=== PATIENT | female | born 1985 | race Caucasian/White ===

== ENCOUNTER 2020-11-19 19:50 | Emergency (ER) | payer SELFPAY ==
[2020-11-19] MEDS ORDERED: Sodium Chloride 0.9% 2.5 ML Syringe FLUSH PRN (20:01)
[2020-11-19] MEDS ORDERED: Sodium Chloride 0.9% 10 ML Syringe FLUSH PRN (20:01)
[2020-11-19] MEDS ORDERED: Adenosine 6 MG/2 ML SDV ONE (20:16)
[2020-11-19] MEDS ORDERED: Sodium Chloride 0.9% 1,000 ML IV ONE ×2 (20:27→21:40)
[2020-11-19 20:28] LABS: CARBON DIOXIDE,CO2 25.4 mmol/L (21.0-32.0); POTASSIUM,K 3.5 mmol/L (3.5-5.1)
[2020-11-19] MEDS ORDERED: Adenosine 6 MG/2 ML SDV IVPUSH ONE (20:29)
[2020-11-19] MEDS ORDERED: Potassium Chloride 10% 20 MEQ/15 ML Soln 30 ML UD Cup PO ONE ×2 (21:36→21:40)
--- NOTE | 2020-11-19 22:51 | EDM.PDOC ---
ED HPI GENERAL MEDICAL PROBLEM - General Chief Complaint: Cardiovascular Problem Stated Complaint: HEART PALP Time Seen by Provider: 11/19/20 19:54 - History of Present Illness INITIAL COMMENTS - FREE TEXT/NARRATIVE: CHIEF COMPLAINT(S): Palpitations HISTORY OF PRESENT ILLNESS: This is a 35-year-old woman without any significant past medical history who comes to the emergency department with a chief complaint of a palpitations. The patient states that for the last 3 days she has been experiencing intermittent palpitations where she feels like her heart is going to come out of her chest. She denies any chest pain but states that she does feel mildly short of breath. She states that she has had a history of these palpitations in the past but they have not been this frequent. She denies any headache, nausea, vomiting, diaphoresis, abdominal pain. She states that she has never had this before. She denies any history of recent travel, recent surgery, prior history of DVT or PE. She denies any history of hyperthyroidism or hypothyroidism. REVIEW OF SYSTEMS: Constitutional: Denies fever, chills. Eyes: Denies eye pain Ears, Nose, Mouth, & Throat: Denies earache Cardiovascular: Positive for palpitations. Denies chest pain Respiratory: Positive for intermittent shortness of breath. Gastrointestinal: Denies Nausea, vomiting, diarrhea, hematochezia. Genitourinary: Denies hematuria Skin:Denies a rash MSK: Denies joint pain Neurological: Denies blurred vision Psychiatric: Denies depression PAST MEDICAL HISTORY: As per history of present illness and as reviewed below otherwise noncontributory. SURGICAL HISTORY: As per history of present illness and as reviewed below otherwise noncontributory. LMP: October 25, 2020 SOCIAL HISTORY: As per history of present illness and as reviewed below otherwise noncontributory. FAMILY HISTORY: As per history of present illness and as reviewed below otherwise noncontributory. EXAMINATION OF ORGAN SYSTEMS/BODY AREAS: Constitutional: Blood pressure is 148/61, heart rate 100, respiratory 16 with an oxygen saturation 100% on room air. Temperature 36.1 General: Anxious appearing woman who is in no acute distress Psychiatric: Anxious appearing woman but cooperative. Eyes: No scleral icterus or conjunctival erythema ENMT: Moist mucous membranes. No pharyngeal erythema Cardiovascular: Regular, rate, and rhythm. No gallops, murmurs, or rubs. Bilateral upper extremity pulses symmetric and intact. No peripheral edema. No JVD. Respiratory: Lungs clear to auscultation bilaterally. No wheezes, rales, or rhonchi. Gastrointestinal: Soft, non-tender, non-distended. Normoactive bowel sounds Genitourinary: No suprapubic tenderness Musculoskeletal: Normal range of motion. Skin: No lesions or abrasions. Neurological: Alert, GCS 15 MEDICAL DECISION MAKING AND COURSE IN THE ED WITH INTERPRETATION/REVIEW OF DIAGNOSTIC STUDIES: This is a 35-year-old woman without any significant past medical history who comes to the emergency department with palpitations and intermittent shortness of breath. At this time we did obtain an EKG which did not reveal any acute signs of ischemia or arrhythmia. Will obtain labs including CBC, BMP, TSH, T4, troponin. We will provide the patient with 1 L of normal saline. On reevaluation, the patient's heart rate had gone into the 200s. We placed the patient on color television console monitor and it did appear to be supraventricular tachycardia. We obtained an EKG which did reveal supraventricular tachycardia at 217. We did place 18-gauge IV in the right arm place the pads on the patient and prepared for adenosine cardioversion. I did discuss this with the patient. During my discussion with the patient the patient's heart rate converted on its own to a heart rate of 120. It was normal sinus rhythm on the color television console monitor. Time: 1948 Twelve-lead EKG interpreted by myself. Normal sinus rhythm at a rate of 99beats per minute. Right axis. VA interval is 136 ms. QRS duration is [address] segments are mildly depressed in leads II, III, aVF and V4 through V6. No T wave inversions Q wave is present and lead V2. Right ventricular hypertrophy is noted. No prior EKGs in our system. Interpretation: Normal sinus rhythm with [facility] Laboratory: CBC is unremarkable. CMP reveals mildly elevated creatinine of 1.1, hyperglycemia at 185 otherwise unremarkable. Troponin x2 is negative. TSH was 7.89, T4 was 1.14. Urinalysis was a clean catch and was negative for leukocyte esterase, negative for nitrites, and negative for blood. Interpretation: Negative. Time: 2008 Twelve-lead EKG interpreted by myself. Supraventricular tachycardia at a rate of 217 beats per minute. Right axis. VA interval is unobtainable. QRS duration is [address] segments are depressed in leads II, 3, aVF, V3 through V6. No T wave inversions is a Q wave in lead V2. Significant change from EKG obtained today. Interpretation: Supraventricular tachycardia Time: 2021 Twelve-lead EKG interpreted by myself. Sinus tachycardia at a rate of 109 beats per minute. Right axis. VA interval is 166 ms. QRS duration is [address] segments are mildly depressed in leads II, III, aVF and V4 through V6. No T wave inversions Q wave in lead V2. Right ventricular hypertrophy. No changes demonstrated from prior EKG dated today. Interpretation: Sinus rhythm with right ventricular hypertrophy During her emergency department visit the patient did have recurrent episodes of paroxysmal SVT which did terminate on their own. I had a discussion with the patient that at this time given the recurrent nature of these arrhythmias I would like to speak with a carton liner. Given the recurrent nature I did provide the patient with verapamil 80 mg by mouth. I contacted [facility] in [place] and they do not have an EP carton liner available. Therefore I contacted [facility] in [place] and spoke with Dr. Carver who recommended 120 mg of diltiazem extended release per day and follow-up with EP cardiology in [place]. After we provided the patient with verapamil the patient no longer had any further episodes of SVT. I did discuss with her at this time she be stable for discharge. She is to follow-up with EP cardiology for further evaluation and monitoring hopefully within the next 2 to 3 days. She was amenable to discharge at this time and had no further questions. She was given strict return precautions DISPOSITION: The patient was discharged home in stable condition. The patient will follow up with EP cardiology within 2 to 3 days CONDITION: Fair PROCEDURES: None FINAL IMPRESSION(S)/DIAGNOSES: 1. Acute paroxysmal supraventricular tachycardia Joby Sanchez M.D. 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: , Other (See Below) Other SENIOR STORAGE ADMINISTRATOR History: D/C - Past Surgical History HEENT Surgical History: Reports: Tonsillectomy Female Surgical History: Reports: Tubal Ligation Social & Family History - Family History Family Medical History: No Pertinent Family History - Caffeine Use Caffeine Use: Reports: None - Recreational Drug Use Recreational Drug Use: No ED ROS GENERAL - Review of Systems Review Of Systems: See Below ED EXAM, GENERAL - Physical Exam Exam: See Below Course - Vital Signs Last Recorded V/S: Last Vital Signs Temp 36.2 C 11/19/20 22:40 Pulse 91 11/19/20 22:40 Resp 18 11/19/20 22:40 BP 107/63 11/19/20 22:40 Pulse Ox 98 11/19/20 22:40 - Orders/Labs/Meds Labs: Laboratory Tests 11/19/20 11/19/20 11/19/20 Range/Units 18:55 18:58 18:58 WBC 8.56 (4.0-11.0) K/uL RBC 5.20 (4.30-5.90) M/uL Hgb 16.3 H (12.0-16.0) g/dL Hct 47.2 H (36.0-46.0) % MCV 90.8 (80.0-98.0) fL MCH 31.3 (27.0-32.0) pg MCHC 34.5 (31.0-37.0) g/dL RDW Std Deviation 42.7 (28.0-62.0) fl RDW Coeff of Chitra 13 (11.0-15.0) % Plt Count 196 (150-400) K/uL MPV 10.80 (7.40-12.00) fL Neut % (Auto) 55.5 (48.0-80.0) % Lymph % (Auto) 34.7 (16.0-40.0) % [place] % (Auto) 8.4 (0.0-15.0) % Eos % (Auto) 0.9 (0.0-7.0) % Baso % (Auto) 0.5 (0.0-1.5) % Neut # (Auto) 4.8 (1.4-5.7) K/uL Lymph # (Auto) 3.0 H (0.6-2.4) K/uL [place] # (Auto) 0.7 (0.0-0.8) K/uL Eos # (Auto) 0.1 (0.0-0.7) K/uL Baso # (Auto) 0.0 (0.0-0.1) K/uL Nucleated RBC % 0.0 /100WBC Nucleated RBCs # 0 K/uL Sodium 141 (136-145) mmol/L Potassium 3.5 (3.5-5.1) mmol/L Chloride 104 (98-107) mmol/L Carbon Dioxide 25.4 (21.0-32.0) mmol/L BUN 16 (7.0-18.0) mg/dL Creatinine 1.1 H (0.6-1.0) mg/dL Est Cr Clr Drug Dosing 62.23 mL/min Estimated GFR (MDRD) 56.9 ml/min Glucose 185 H (74-106) mg/dL Calcium 9.4 (8.5-10.1) mg/dL Magnesium 2.2 (1.8-2.4) mg/dL Total Bilirubin 0.6 (0.2-1.0) mg/dL AST 15 (15-37) IU/L ALT 28 (14-63) IU/L Alkaline Phosphatase 52 (46-116) U/L Troponin I < 0.050 (0.000-0.056) ng/mL Total Protein 7.8 (6.4-8.2) g/dL Albumin 4.5 (3.4-5.0) g/dL Globulin 3.3 (2.6-4.0) g/dL Albumin/Globulin Ratio 1.4 (0.9-1.6) Free T4 1.14 (0.76-1.46) ng/dL TSH 3rd Generation 7.89 H (0.36-3.74) uIU/mL Urine Color Urine Appearance Urine pH (5.0-8.0) Ur Specific [place] (1.001-1.035) Urine Protein (NEGATIVE) mg/dL Urine Glucose (UA) (NEGATIVE) mg/dL Urine Ketones (NEGATIVE) mg/dL Urine Occult Blood (NEGATIVE) Urine Nitrite (NEGATIVE) Urine Bilirubin (NEGATIVE) Urine Urobilinogen (<2.0) EU/dL Ur Leukocyte Esterase (NEGATIVE) Urine HCG, Qual (NEGATIVE) 11/19/20 11/19/20 11/19/20 Range/Units 21:15 21:15 21:55 WBC (4.0-11.0) K/uL RBC (4.30-5.90) M/uL Hgb (12.0-16.0) g/dL Hct (36.0-46.0) % MCV (80.0-98.0) fL MCH (27.0-32.0) pg MCHC (31.0-37.0) g/dL RDW Std Deviation (28.0-62.0) fl RDW Coeff of Chitra (11.0-15.0) % Plt Count (150-400) K/uL MPV (7.40-12.00) fL Neut % (Auto) (48.0-80.0) % Lymph % (Auto) (16.0-40.0) % [place] % (Auto) (0.0-15.0) % Eos % (Auto) (0.0-7.0) % Baso % (Auto) (0.0-1.5) % Neut # (Auto) (1.4-5.7) K/uL Lymph # (Auto) (0.6-2.4) K/uL [place] # (Auto) (0.0-0.8) K/uL Eos # (Auto) (0.0-0.7) K/uL Baso # (Auto) (0.0-0.1) K/uL Nucleated RBC % /100WBC Nucleated RBCs # K/uL Sodium (136-145) mmol/L Potassium (3.5-5.1) mmol/L Chloride (98-107) mmol/L Carbon Dioxide (21.0-32.0) mmol/L BUN (7.0-18.0) mg/dL Creatinine (0.6-1.0) mg/dL Est Cr Clr Drug Dosing mL/min Estimated GFR (MDRD) ml/min Glucose (74-106) mg/dL Calcium (8.5-10.1) mg/dL Magnesium (1.8-2.4) mg/dL Total Bilirubin (0.2-1.0) mg/dL AST (15-37) IU/L ALT (14-63) IU/L Alkaline Phosphatase (46-116) U/L Troponin I < 0.050 (0.000-0.056) ng/mL Total Protein (6.4-8.2) g/dL Albumin (3.4-5.0) g/dL Globulin (2.6-4.0) g/dL Albumin/Globulin Ratio (0.9-1.6) Free T4 (0.76-1.46) ng/dL TSH 3rd Generation (0.36-3.74) uIU/mL Urine Color YELLOW Urine Appearance CLEAR Urine pH 6.0 (5.0-8.0) Ur Specific [place] <= 1.005 (1.001-1.035) Urine Protein NEGATIVE (NEGATIVE) mg/dL Urine Glucose (UA) NEGATIVE (NEGATIVE) mg/dL Urine Ketones NEGATIVE (NEGATIVE) mg/dL Urine Occult Blood NEGATIVE (NEGATIVE) Urine Nitrite NEGATIVE (NEGATIVE) Urine Bilirubin NEGATIVE (NEGATIVE) Urine Urobilinogen 0.2 (<2.0) EU/dL Ur Leukocyte Esterase NEGATIVE (NEGATIVE) Urine HCG, Qual NEGATIVE (NEGATIVE) Meds: Medications Discontinued Medications Generic Name Dose Route Start Last Admin Trade Name Freq PRN Reason Stop Dose Admin Adenosine Confirm 11/19/20 20:16 11/19/20 22:38 Adenocard Administered 11/19/20 20:17 Not Given Dose 12 mg .ROUTE .STK-MED ONE Adenosine 6 mg 11/19/20 20:29 11/19/20 22:03 Adenocard IVPUSH 11/19/20 20:30 Not Given NOW ONE Sodium Chloride 1,000 mls @ 999 mls/hr 11/19/20 20:27 11/19/20 20:28 Normal Saline IV 11/19/20 21:27 999 mls/hr .Bolus ONE Administration Sodium Chloride 1,000 mls @ 999 mls/hr 11/19/20 21:40 11/19/20 21:44 Normal Saline IV 11/19/20 22:40 999 mls/hr .Bolus ONE Administration Potassium Chloride 40 meq 11/19/20 21:36 11/19/20 22:00 Potassium Chloride PO 11/19/20 21:37 40 meq ONETIME ONE Administration Potassium Chloride 20 meq 11/19/20 21:40 11/19/20 22:00 Potassium Chloride PO 11/19/20 21:41 20 meq ONETIME ONE Administration Sodium Chloride 10 ml 11/19/20 20:01 Saline Flush FLUSH ASDIRECTED PRN Keep Vein Open Sodium Chloride 2.5 ml 11/19/20 20:01 Saline Flush FLUSH ASDIRECTED PRN Keep Vein Open Verapamil HCl 80 mg 11/19/20 20:36 11/19/20 20:50 Calan PO 11/19/20 20:37 80 mg ONETIME ONE Administration Departure - Departure Time of Disposition: 22:51 Disposition: Home, Self-Care 01 Condition: Fair Clinical Impression: Paroxysmal supraventricular tachycardia Prescriptions: dilTIAZem HCL [Diltiazem 24Hr ER] 120 mg PO DAILY #30 cap.sa.24h Instructions: Supraventricular Tachycardia, Adult, [id number] Referrals: PCP,None [Primary Care Provider] - Forms: ED Department Discharge Additional Instructions: You were evaluated today on an emergent basis. At this time we did diagnose you with supraventricular tachycardia. In discussion with cardiology at [facility] they would like you to take diltiazem 120 mg a day. They would like you to contact them for a follow-up appointment number is provided below. If you have any worsening of the symptoms you start to feel your heart racing, feel chest pain or shortness of breath please return to the emergency department. [facility] Cardiology [phone] If you do not have a primary care physician I do recommend you make an appointment with a primary care physician at the numbers below. [facility] - Primary Care [address] [place] [address] [id number] The patient is informed of any results of their evaluation and diagnostic workup and all questions are answered. They are given discharge instructions and return precautions. The patient is stable for discharge. The patient states they understand and agree with the plan and that they will return if their symptoms get worse or if they have any new concerns. The following information is given to patients seen in the emergency department who are being discharged to home. This information is to outline your options for follow-up care. We provide all patients seen in our emergency department with a follow-up referral. The need for follow-up, as well as the timing and circumstances, are variable depending upon the specifics of your emergency department visit. If you don't have a primary care physician on staff, we will provide you with a referral. We always advise you to contact your personal physician following an emergency department visit to inform them of the circumstance of the visit and for follow-up with them and/or the need for any referrals to a consulting specialist. The emergency department will also refer you to a specialist when appropriate. This referral assures that you have the opportunity for follow-up care with a specialist. All of these measure are taken in an effort to provide you with optimal care, which includes your follow-up. Under all circumstances we always encourage you to contact your private physician who remains a resource for coordinating your care. When calling for follow-up care, please make the office aware that this follow-up is from your recent emergency room visit. If for any reason you are refused follow-up, please contact the [facility] Emergency Department at and asked to speak to the emergency department charge nurse. Sepsis Event Note (ED) - Evaluation Sepsis Screening Result: No Definite Risk
== END 2020-11-19 23:00 | disposition home or self-care (01) ==
LOC: MW.ED 19:50
DX: I47.1 Supraventricular tachycardia (principal); R74.8 Abnormal levels of other serum enzymes
CPT/HCPCS: 36415; 80053; 81003; 81025; 83735; 84439; 84443; 84484; 85025; 93005; 99285; A9270; J7030; 93010; 99284

== ENCOUNTER 2020-11-20 23:52 | Emergency (ER) | payer SELFPAY ==
[2020-11-21] MEDS ORDERED: LORazepam 2 MG/ML SDV IVPUSH ONE (00:14)
[2020-11-21 00:29] LABS: BLOOD UREA NITROGEN,BUN 14 mg/dL (7.0-18.0); CARBON DIOXIDE,CO2 24.6 mmol/L (21.0-32.0); CHLORIDE,CL 102 mmol/L (98-107); GLUCOSE RANDOM 113 mg/dL (74-106); SODIUM,NA 138 mmol/L (136-145)
[2020-11-21] MEDS ORDERED: Sodium Chloride 0.9% 1,000 ML IV SCH (01:00)
[2020-11-21] MEDS ORDERED: Diltiazem 120 MG Cap.CD PO ONE (01:40)
[2020-11-21] MEDS ORDERED: Diltiazem IR 60 MG Tab PO ONE (01:56)
[2020-11-21] MEDS ORDERED: Sodium Chloride 0.9% 100 ML ONE (03:08)
[2020-11-21] MEDS ORDERED: Diltiazem 100 MG in Sodium Chloride 0.9% 100 ML IV SCH (03:15)
--- NOTE | 2020-11-21 07:56 | EDM.PDOC ---
ED HPI GENERAL MEDICAL PROBLEM - General Chief Complaint: Cardiovascular Problem Stated Complaint: HEART ISSUES Time Seen by Provider: 11/20/20 23:53 - History of Present Illness INITIAL COMMENTS - FREE TEXT/NARRATIVE: Jinny Rinaldi CHIEF COMPLAINT(S): Palpitations HISTORY OF PRESENT ILLNESS: This is a 35-year-old woman with a past medical history of paroxysmal supraventricular tachycardia who comes to the emergency department with a chief complaint of palpitations. The patient states that since starting diltiazem today she has still been experiencing palpitations intermittently which may occur almost pass out. She states that she does not have any pain, diaphoresis or nausea but states that she feels like her heart is going to jump out of her chest. She denies any recent travel, recent surgery, prior history of DVT or PE. She states that she has an appointment tomorrow with her primary care physician to be referred to [facility] with Dr. Ramirez but she was too symptomatic and came to the emergency department. REVIEW OF SYSTEMS: Constitutional: Denies fever, chills. Eyes: Denies eye pain Ears, Nose, Mouth, & Throat: Denies earache Cardiovascular: Positive for palpitations and presyncope. Denies lower extremity edema Respiratory: Denies shortness of breath Gastrointestinal: Denies Nausea, vomiting, diarrhea, hematochezia. Genitourinary: Denies hematuria Skin:Denies a rash MSK: Denies joint pain Neurological: Denies blurred vision Psychiatric: Denies depression PAST MEDICAL HISTORY: As per history of present illness and as reviewed below otherwise noncontributory. SURGICAL HISTORY: As per history of present illness and as reviewed below otherwise noncontributory. SOCIAL HISTORY: As per history of present illness and as reviewed below otherwise noncontributory. FAMILY HISTORY: As per history of present illness and as reviewed below otherwise noncontributory. EXAMINATION OF ORGAN SYSTEMS/BODY AREAS: Constitutional: Heart rate was 142, respiratory rate 18 with an oxygen saturation 98% on room air. Blood pressure is 159/84 General: Anxious appearing young woman who in mild distress Psychiatric: Anxious appearing but cooperative. Eyes: No scleral icterus or conjunctival erythema ENMT: Moist mucous membranes. No pharyngeal erythema Cardiovascular: Tachycardic but regular. No gallops, murmurs, or rubs. Bilateral upper extremity pulses symmetric and intact. No peripheral edema. No JVD. Respiratory: Lungs clear to auscultation bilaterally. No wheezes, rales, or rhonchi. Gastrointestinal: Soft, non-tender, non-distended. Normoactive bowel sounds Genitourinary: No suprapubic tenderness Musculoskeletal: Normal range of motion. Skin: No lesions or abrasions. Neurological: Alert, GCS 15 MEDICAL DECISION MAKING AND COURSE IN THE ED WITH INTERPRETATION/REVIEW OF DIAGNOSTIC STUDIES: This is a 35-year-old man with a past medical history of paroxysmal supraventricular tachycardia who comes to the emergency department with continued palpitations and presyncopal episode. Initial EKG did not reveal any acute signs of ischemia and was sinus rhythm. At this time we did do a cardiac work-up yesterday. Will obtain repeat electrolytes and a D-dimer given the tachycardia. We will administer the patient 60 mg of p.o. diltiazem. Time: 2358 Twelve-lead EKG interpreted by myself. Normal sinus rhythm at a rate of 84beats per minute. Right axis. DE interval is 132 ms. QRS duration is [address] segments are slightly depressed and 2, 3, aVF and V4 through V6. No T wave inversions no Q waves present. Unknown if this is changed from yesterday as we are in a downtime I do not have access to records. Interpretation: Normal sinus rhythm with [facility] Laboratory: BMP is unremarkable. D-dimer is negative. The patient had continued episodes of tachycardia which were symptomatic for the patient is becoming short of breath and presyncopal. We did obtain a repeat EKG which did reveal atrial flutter with conversion into normal sinus rhythm with PACs. At this time given the patient is symptomatic I do not believe the patient is stable for discharge. Time: 010 Twelve-lead EKG interpreted by myself. Atrial flutter with conversion to normal sinus rhythm with PACs at a rate of 106 beats per minute. Right axis. DE interval is unobtainable. QRS duration is [address] segments are slightly depressed in leads aVF and V4 through V6. No T wave inversions no Q waves present. Interpretation: Atrial Flutter 2:1 Given that we do not have cardiology at our institution and [facility] does not have EP cardiology I did contact [facility] in [place] and spoke with Dr. Jordan and Dr Arias who accepted the transfer. After starting the diltiazem drip the patient's heart rate was persistently in the 115-120s. We will reevaluate prior to transfer. Laboratory: COVID is negative The radiological images were viewed by myself along with reading the report from the radiologist. Chest x-ray does not reveal any acute cardiopulmonary process. There was a right sided pulmonary nodule measuring 10 mm. EMS was contacted and at this time the patient cannot be transferred for approximately 4 hours. Given that the patient will be observed in our emergency department until transfer can be initiated we will obtain a CT thorax with and without contrast to evaluate. Will obtain an hCG prior to this process. I did discuss obtaining CT and she was amenable to this plan. We contacted [facility] and at this time they cannot hold the bed and would like us to call 30 minutes prior to transfer to discuss transfer again. The patient was updated. The radiological images were viewed by myself along with reading the report from the radiologist. CT thorax with contrast reveals no evidence of pulmonary nodule. There is an i ncidentally noted right thyroid nodule measuring up to 3.3 cm follow-up with thyroid ultrasound is recommended as outpatient. Patients heart rate on monitor after Cardizem drip was 80s-90s with no further episodes of Atrial Flutter or SVT. DISPOSITION: Patient was signed out to Dr. Castaneda pending contacting [facility] prior to transfer at 7 am CONDITION: Serious PROCEDURES: None FINAL IMPRESSION(S)/DIAGNOSES: 1. Acute paroxysmal supraventricular tachycardia 2. Acute paroxysmal atrial flutter with 2-1 conduction Joby Sanchez M.D. 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: , Other (See Below) Other STAFFING ACCOUNT MANAGER History: D/C - Past Surgical History HEENT Surgical History: Reports: Tonsillectomy Female Surgical History: Reports: Tubal Ligation Social & Family History - Family History Family Medical History: No Pertinent Family History - Tobacco Use Tobacco Use Status *Q: Never Tobacco User - Caffeine Use Caffeine Use: Reports: None - Recreational Drug Use Recreational Drug Use: No ED ROS GENERAL - Review of Systems Review Of Systems: See Below ED EXAM, GENERAL - Physical Exam Exam: See Below Course - Vital Signs Last Recorded V/S: Last Vital Signs Temp 36.6 C 11/20/20 23:59 Pulse 89 11/21/20 08:07 Resp 18 11/21/20 08:07 BP 116/61 11/21/20 08:07 Pulse Ox 96 11/21/20 08:07 - Orders/Labs/Meds Orders: Active Orders 24 hr Category Date Time Status Chest 1V Frontal [CR] Stat Exams 11/21/20 03:35 Taken Chest w Cont [CT] Stat Exams 11/21/20 03:50 Taken Labs: Laboratory Tests 11/21/20 11/21/20 11/21/20 Range/Units 00:05 00:05 00:05 D-Dimer, Quantitative < 0.19 (0.0-0.50) mg/L FEU Sodium 138 (136-145) mmol/L Potassium 4.0 (3.5-5.1) mmol/L Chloride 102 (98-107) mmol/L Carbon Dioxide 24.6 (21.0-32.0) mmol/L BUN 14 (7.0-18.0) mg/dL Creatinine 1.0 (0.6-1.0) mg/dL Est Cr Clr Drug Dosing 68.45 mL/min Estimated GFR (MDRD) > 60.0 ml/min Glucose 113 H (74-106) mg/dL Calcium 9.4 (8.5-10.1) mg/dL Magnesium 2.1 (1.8-2.4) mg/dL HCG, Qual NEGATIVE (NEG) SARS-CoV-2 RNA (KATELYN) (NEGATIVE) 11/21/20 Range/Units 03:00 D-Dimer, Quantitative (0.0-0.50) mg/L FEU Sodium (136-145) mmol/L Potassium (3.5-5.1) mmol/L Chloride (98-107) mmol/L Carbon Dioxide (21.0-32.0) mmol/L BUN (7.0-18.0) mg/dL Creatinine (0.6-1.0) mg/dL Est Cr Clr Drug Dosing mL/min Estimated GFR (MDRD) ml/min Glucose (74-106) mg/dL Calcium (8.5-10.1) mg/dL Magnesium (1.8-2.4) mg/dL HCG, Qual (NEG) SARS-CoV-2 RNA (KATELYN) NEGATIVE (NEGATIVE) Meds: Medications Discontinued Medications Generic Name Dose Route Start Last Admin Trade Name Freq PRN Reason Stop Dose Admin Diltiazem HCl 60 mg 11/21/20 01:40 11/21/20 02:05 Cardizem Cd PO 11/21/20 01:41 Not Given ONETIME ONE Diltiazem HCl 60 mg 11/21/20 01:56 11/21/20 02:05 Cardizem PO 11/21/20 01:57 60 mg ONETIME ONE Administration Sodium Chloride 1,000 mls @ 999 mls/hr 11/21/20 01:00 11/21/20 01:10 Normal Saline IV 999 mls/hr ASDIRECTED DENIS Administration Diltiazem HCl 100 mg/ Sodium 100 mls @ 5 mls/hr 11/21/20 03:15 Chloride IV NOW DENIS Protocol 5 MG/HR Sodium Chloride Confirm 11/21/20 03:08 11/21/20 08:50 Normal Saline Administered 11/21/20 03:09 Not Given Dose 100 mls @ as directed .ROUTE .STK-MED ONE Iopamidol 75 ml 11/21/20 10:02 11/21/20 10:04 Iopamidol 755 Mg/Ml 500 Ml Multipack Bottle IVPUSH 11/21/20 10:03 75 ml ONETIME STA Administration Lorazepam 1 mg 11/21/20 00:14 11/21/20 00:25 Ativan IVPUSH 11/21/20 00:15 1 mg ONETIME ONE Administration Departure - Departure Time of Disposition: 08:00 Disposition: DC/Tfer to Acute Hospital 02 Reason for Transfer *Q: Other (EP cardiology) Condition: Serious Clinical Impression: Paroxysmal supraventricular tachycardia Prescriptions: dilTIAZem HCL [Diltiazem 24Hr ER] 180 mg PO DAILY #30 cap.sa.24h Referrals: PCP,None [Primary Care Provider] - Forms: ED Department Discharge Sepsis Event Note (ED) - Evaluation Sepsis Screening Result: No Definite Risk - My Orders Last 24 Hours: My Active Orders 11/21/20 03:35 Chest 1V Frontal [CR] Stat 11/21/20 03:50 Chest w Cont [CT] Stat - Assessment/Plan Last 24 Hours: My Active Orders 11/21/20 03:35 Chest 1V Frontal [CR] Stat 11/21/20 03:50 Chest w Cont [CT] Stat
[2020-11-21] MEDS ORDERED: Iopamidol 755 MG/ML 500 ML Multipack Bottle IVPUSH STA (10:02)
--- NOTE | 2020-11-22 10:15 | CT ---
EXAM DATE: 11/20/20 PATIENT'S AGE: 35 Patient: RITU BATEMAN [facility] Site [facility] 1985 Study: CT-Chest -11/21/2020 4:56:13 AM Ordering Physician: Joby Sanchez Final Report: INDICATION: Pulmonary nodule on chest x-ray TECHNIQUE: Contrast enhanced axial CT imaging through the chest. 100 mL Isovue 370 contrast agent was administered intravenously. Sagittal and coronal reconstructions are provided. COMPARISON: One-view chest radiograph 11/21/2020 FINDINGS: The lungs are clear. There is no pleural effusion or pneumothorax. No pulmonary nodules are demonstrated. There is no mediastinal lymphadenopathy. The heart is normal in size. There is no pericardial effusion. There is normal caliber of the main pulmonary artery and thoracic aorta. There is no central pulmonary embolism. A heterogeneously enhancing nodules noted in the right thyroid lobe measuring 3.3 x 2.7 x 1.6 cm. The thoracic osseous structures are unremarkable. No abnormality is demonstrated in the visualized upper abdomen. IMPRESSION: 1. No CT evidence of pulmonary nodule. Abnormality seen on radiography presumably represents an object external to the patient. Correlate clinically. 2. Incidentally noted right thyroid nodule measuring up to 3.3 cm. Follow-up thyroid ultrasound is recommended as an outpatient. Please note that all CT scans at this facility use dose modulation, iterative reconstruction, and/or weight-based dosing when appropriate to reduce radiation dose to as low as reasonably achievable. Dictated by Rosie Orozco MD @ Nov 21 2020 5:06AM Signed by: Rosie Orozco MD @11/21/2020 5:13:08 AM (Electronic Signature) Report Signed by Proxy. JANAE
--- NOTE | 2020-11-22 10:17 | CR ---
EXAM DATE: 11/20/20 PATIENT'S AGE: 35 Patient: RITU ABTEMAN Facility: [facility] Site : 1985 Study: XRay-Chest -11/21/2020 3:41:27 AM Ordering Physician: Joby Sanchez Final Report: INDICATION: Shortness of breath TECHNIQUE: AP view of the chest COMPARISON: None FINDINGS: The lungs are clear. A 10 mm round pulmonary nodule is noted in the right midlung. There is no sizable pleural effusion or pneumothorax. The cardiomediastinal silhouette is normal. The visualized osseous structures are unremarkable. IMPRESSION: 1. No acute intrathoracic process. 2. A 10 mm right pulmonary nodule. Further evaluation is recommended with CT. Dictated by Rosie Orozco MD @ Nov 21 2020 3:56AM ----- ADDENDUM ----- Report was faxed to Dr. Sanchez and confirmed as received at 4:02 a.m. Dictated by Rosie Orozco MD @ Nov 21 2020 4:04AM Signed by: Rosei Orozco MD @11/21/2020 4:04:27 AM (Electronic Signature) Report Signed by Proxy. JANAE
== END 2020-11-21 08:51 ==
LOC: MW.ED 23:52
DX: I48.92 Unspecified atrial flutter (principal); I47.1 Supraventricular tachycardia; R55 Syncope and collapse; Z79.899 Other long term (current) drug therapy; Z20.822 Contact with and (suspected) exposure to COVID-19
CPT/HCPCS: 36415; 71045; 71260; 80048; 83735; 84703; 85379; 87635; 93005; 96374; 99285; A9270; J2060; J7030; Q9967; 93010; U0002